=== PATIENT | male | born 1960 | race Hispanic/Latino ===

== ENCOUNTER 2017-03-01 20:30 | Outpatient (CLI) | payer BC | END 2017-03-01 20:31 | disposition home or self-care (01) | LOC: SLEEPLAB 20:30 | PROVIDERS: ATTEND Urology | DX: G47.9 Sleep disorder, unspecified (principal); F51.01 Primary insomnia; R06.83 Snoring; R06.81 Apnea, not elsewhere classified; R53.83 Other fatigue | CPT/HCPCS: 95811 ==

== ENCOUNTER 2024-05-09 13:24 | Inpatient (IN) | payer BC ==
[2024-05-09 13:52] LABS: #Basophils Less than 0.03 10x3/uL (0.0-0.2); #Eosinophils Less than 0.03 10x3/uL (0.0-0.7); %Basophils 0.2 % (0.0-1.0); %Lymphocytes 4.9 % (21.0-51.0); %Monocytes 1.7 % (0.0-10.0); %Neutrophils 92.8 % (42.0-75.0); Hematocrit 43.3 % (42.0-52.0); Mean Corpuscular HGB CONC 34.6 g/dL (32.0-36.0); Mean Corpuscular Hemoglobin 31.7 pg (27.0-31.0); Mean Corpuscular Volume 91.5 fL (78.0-98.0); Mean Platelet Volume 9.1 fL (7.4-10.4); Platelet Count 296 10x3/uL (130-400); RBC Distribution Width 13.3 % (11.5-14.5); Red Blood Cell (RBC) Count 4.73 mill/uL (4.70-6.10)
[2024-05-09] MEDS ORDERED: Aspirin Chewable 81 MG TAB ONE (13:55)
[2024-05-09] MEDS ORDERED: Verapamil 5 MG/2 ML VIAL ONE (14:02)
[2024-05-09] MEDS ORDERED: Atropine Sulfate 1 mg/10 ml Syringe ONE (14:02)
[2024-05-09] MEDS ORDERED: Heparin 10,000 UNITS/ 10 ML VIAL ONE (14:02)
[2024-05-09] MEDS ORDERED: Adenosine 6 mg (2 mL) VIAL ONE (14:02)
[2024-05-09] MEDS ORDERED: Nitroglycerin 50 MG/250 ML BOT 250 ML ONE (14:02)
[2024-05-09] MEDS ORDERED: PHENYLEPHRINE-NS 100 MCG/ML 10 ML SYRINGE ONE (14:03)
[2024-05-09 14:10] LABS: ALT (SGPT) 32 U/L (8-55); AST (SGOT) 94 U/L (5-34); Albumin 4.4 g/dL (3.4-4.8); Alkaline Phosphatase 70 U/L (40-110); Anion Gap 16 mmol/L (10-20); BUN (Urea Nitrogen) 15 mg/dL (8.4-25.7); Bilirubin, Total 0.4 mg/dL (0.2-1.2); Calc. Creatinine Clearance 0 mL/min (70-130); Calcium 8.8 mg/dL (7.8-10.44); Carbon Dioxide 20 mmol/L (23-31); Chloride 106 mmol/L (98-107); Estimated GFR 96; Globulin 2.5 g/dL (2.4-3.5); Glucose 164 mg/dL (80-115); Lipase 30 U/L (8-78); Magnesium 2.2 mg/dL (1.6-2.6); Potassium 3.8 mmol/L (3.5-5.1); Protein, Total 6.9 g/dL (5.8-8.1); Sodium 138 mmol/L (136-145)
[2024-05-09 14:19] LABS: Troponin I 6.011 ng/mL (< 0.028)
[2024-05-09] MEDS ORDERED: TICAGRELOR 90 MG TABLET ONE (14:31)
[2024-05-09] MEDS ORDERED: Milk Of Magnesia 30 ML UDCUP PO PRN (15:01)
[2024-05-09] MEDS ORDERED: cloNIDine 0.1 MG TAB PO PRN (15:01)
[2024-05-09] MEDS ORDERED: Nitroglycerin 0.4 MG TAB (25 Tab Bottle) SL PRN (15:01)
[2024-05-09] MEDS ORDERED: Morphine 2 MG/ML VIAL SLOW IVP PRN (15:01)
[2024-05-09] MEDS ORDERED: Mag-Al 1200 mg/1200 mg/30 ML UDCUP PO PRN (15:01)
[2024-05-09] MEDS ORDERED: traMADol HCl 50 MG TAB PO PRN (15:01)
[2024-05-09] MEDS ORDERED: Zolpidem Tartrate 5 MG TAB PO PRN (15:01)
[2024-05-09] MEDS ORDERED: Acetaminophen/Codeine 30-300mg Tablet PO PRN (15:01)
[2024-05-09 18:09] LABS: Troponin I 173.294 ng/mL (< 0.028)
[2024-05-09] MEDS: Sodium Chloride 0.9% 500 ML IV SCH (20:46)
[2024-05-09] MEDS: TICAGRELOR 90 MG TABLET PO SCH (21:05)
[2024-05-09] MEDS: Rosuvastatin 20 MG TAB PO SCH (21:05)
[2024-05-09 22:37] LABS: Critical Call Chem Troponin I RESULT DECREASING; Troponin I 145.771 ng/mL (< 0.028)
[2024-05-10 04:58] LABS: #Basophils Less than 0.03 10x3/uL (0.0-0.2); #Eosinophils Less than 0.03 10x3/uL (0.0-0.7); %Basophils 0.1 % (0.0-1.0); %Eosinophils 0.1 % (0.0-10.0); %Lymphocytes 9.2 % (21.0-51.0); %Monocytes 7.4 % (0.0-10.0); %Neutrophils 82.7 % (42.0-75.0); Hematocrit 43.2 % (42.0-52.0); Hemoglobin 14.9 g/dL (14.0-18.0); Mean Corpuscular HGB CONC 34.5 g/dL (32.0-36.0); Mean Corpuscular Hemoglobin 31.6 pg (27.0-31.0); Mean Corpuscular Volume 91.7 fL (78.0-98.0); Mean Platelet Volume 9.5 fL (7.4-10.4); Platelet Count 279 10x3/uL (130-400); RBC Distribution Width 13.7 % (11.5-14.5); Red Blood Cell (RBC) Count 4.71 mill/uL (4.70-6.10)
[2024-05-10 05:32] LABS: ALT (SGPT) 74 U/L (8-55); AST (SGOT) 312 U/L (5-34); Albumin 3.9 g/dL (3.4-4.8); Alkaline Phosphatase 68 U/L (40-110); Anion Gap 12 mmol/L (10-20); BUN (Urea Nitrogen) 11 mg/dL (8.4-25.7); Bilirubin, Total 0.6 mg/dL (0.2-1.2); Calc. Creatinine Clearance 88 mL/min (70-130); Calcium 8.7 mg/dL (7.8-10.44); Carbon Dioxide 22 mmol/L (23-31); Cardiac Risk 4.9 (Less than 4.5); Chloride 108 mmol/L (98-107); Cholesterol 166 mg/dl (< 200 Desired); Estimated GFR 100; Globulin 2.8 g/dL (2.4-3.5); Glucose 133 mg/dL (80-115); HDL Cholesterol 34 mg/dL (>60 Neg Risk); LDL Cholesterol, Calculated 101 mg/dL; Potassium 3.5 mmol/L (3.5-5.1); Protein, Total 6.7 g/dL (5.8-8.1); Sodium 138 mmol/L (136-145); Triglycerides 155 mg/dL (Less than 150)
[2024-05-10 05:44] LABS: Free T4 (Free Thyroxine) 1.03 ng/dL (0.70-1.48); Thyroid Stimulating Hormone 1.4114 uIU/mL (0.35-4.94)
[2024-05-10] MEDS: Aspirin Chewable 81 MG TAB PO SCH (08:06)
[2024-05-10] MEDS: Sacubitril 24MG/Valsartan 26 MG TAB PO SCH (20:06)
[2024-05-11 05:13] LABS: Critical Call Chem Troponin I RESULT DECREASING; Troponin I 38.857 ng/mL (< 0.028)
[2024-05-11] MEDS ORDERED: Empagliflozin 10 MG TAB PO SCH (11:00)
[2024-05-11] MEDS: Dapagliflozin Propanediol 10 MG TAB PO SCH (15:27)
[2024-05-12 05:38] VITALS: BMI 24.3
[2024-05-12 16:10] VITALS: BP 132/78; TEMP 98.4
[2024-05-12] MEDS ORDERED: Atorvastatin Calcium 40 MG TAB PO SCH (21:00)
== END 2024-05-12 18:15 | disposition home or self-care (01) | DRG 322 ==
LOC: ERS 13:24 → CCU 14:37 → PCU 05-10 17:33
PROVIDERS: ADMIT Internal Medicine Cardiovascular Disease; ATTEND Internal Medicine Cardiovascular Disease
PROC: 027035Z Dilation of Coronary Artery, One Artery with Two Drug-eluting Intraluminal Devices, Percutaneous Approach (ICD-10-PCS; principal; 2024-05-09)
PROC: B211YZZ Fluoroscopy of Multiple Coronary Arteries using Other Contrast (ICD-10-PCS; 2024-05-09)
PROC: B215YZZ Fluoroscopy of Left Heart using Other Contrast (ICD-10-PCS; 2024-05-09)
DX: I21.09 ST elevation (STEMI) myocardial infarction involving other coronary artery of anterior wall (principal); I25.5 Ischemic cardiomyopathy; I25.10 Atherosclerotic heart disease of native coronary artery without angina pectoris; E78.5 Hyperlipidemia, unspecified; Z79.82 Long term (current) use of aspirin; Z79.899 Other long term (current) drug therapy
CPT/HCPCS: 36415; 71045; 80053; 80061; 83690; 83735; 83880; 84439; 84443; 84481; 84484; 85025; 85347; 92941; 93005; 93010; 93306; 93458; 93798; 96374; C1769; C1874; C1887; C9606; J0153; J0461; J1644